=== PATIENT | male | born 2000 | race Two or more races ===

== ENCOUNTER 2025-04-20 15:40 | Emergency (ER) | payer SELFPAY ==
[~2025-04-20] VITALS: Ht 180.3 cm; Wt 81.8 kg
[2025-04-20 15:48] VITALS: BP 135/73; PULSE 104; RESP 18; TEMP 97.8; O2SAT 98
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
== END 2025-04-20 16:33 | disposition home or self-care (01) ==
LOC: ER 15:40
DX: M25.551 Pain in right hip (principal); W01.0XXA Fall on same level from slipping, tripping and stumbling without subsequent striking against object, initial encounter; Y93.01 Activity, walking, marching and hiking; Y92.89 Other specified places as the place of occurrence of the external cause; Y99.8 Other external cause status